=== PATIENT | female | born 1960 | race Caucasian/White ===

== ENCOUNTER → 2021-02-22 | Outpatient (CLI) | payer BC, OTHER ==
--- NOTE | 2021-02-22 13:47 | DIREP ---
PROCEDURE:CT HEAD OR BRAIN W/O CONTRAST COMPARISON:None. INDICATIONS:LT SIDED PATEL, HTN, HX FALL TECHNIQUE:CT images were created without intravenous contrast. FINDINGS: VENTRICLES:The ventricles are normal in size and configuration. CEREBRUM:Small foci of diminished attenuation in the supratentorial white matter consistent with mild leukoaraiosis. CEREBELLUM:Negative. BRAINSTEM:Negative. BASAL CISTERNS:Negative. HEMORRHAGE:No MASS LESION:No ACUTE INFARCT:No SKULL:Normal. SINUSES:Normal. OTHER:None. CONCLUSION:Mild white matter hypodensity. Otherwise, negative head CT. Dictated by: Gurjit Shah M.D. on 02/22/2021 at 01:45 PM
== END | disposition home or self-care (01) ==
LOC: RAD 12:59
PROVIDERS: ATTEND Specialist
DX: R51.9 Headache, unspecified (principal); I10 Essential (primary) hypertension; Z91.81 History of falling
CPT/HCPCS: 70450

== ENCOUNTER → 2021-05-25 | Outpatient (CLI) | payer BC | END | disposition home or self-care (01) | LOC: RAD 15:11 | PROVIDERS: ATTEND Specialist | DX: Z12.31 Encounter for screening mammogram for malignant neoplasm of breast (principal); N64.89 Other specified disorders of breast | CPT/HCPCS: 77067 ==

== ENCOUNTER → 2021-07-01 | Outpatient (CLI) | payer BC ==
[2021-07-01 09:04] LABS: BASOPHIL # 0.1 10^3/uL (0.0-0.1); BASOPHIL % 0.7 % (0.0-0.2); EOSINOPHIL # 0.2 10^3/uL (0.0-0.2); EOSINOPHIL % 2.6 % (0.0-5.0); LYMPHOCYTES # 2.33 10^3/uL1 (1.0-4.8); LYMPHOCYTES % 32.5 % (24.0-44.0); MEAN CORP HGB 28.8 pg (26-34); MONOCYTES # 0.4 10^3/uL (0.3-0.8); MONOCYTES % 6.1 % (5.0-12.0); NEUTROPHIL # 4.1 10^3/uL (1.8-7.7); NEUTROPHILS % 57.1 % (41.0-85.0); PLATELET COUNT 272 10^3/uL (150-400); RED CELL DISTRIBUTION WIDTH 12.6 % (11.5-14.5)
[2021-07-01 09:07] LABS: ABG PCO2 31.1 mmHg (35.0-45.0); BE(B) -4.1 mmol/L (-2.0-2.0); HCO3act 19.3 mmol/L (22.0-26.0); pO2 81.7 mmHg (80.0-100.0)
--- NOTE | 2021-07-01 09:25 | DIREP ---
PROCEDURE:CHEST 2 VIEWS COMPARISON:None. INDICATIONS:COVID POSITIVE, COUGH, DM FINDINGS: LUNGS/PLEURA:No focal consolidation, pleural effusion, or pneumothorax. VASCULATURE:Normal. Unremarkable pulmonary vasculature. CARDIAC:Normal. No cardiac silhouette abnormality or cardiomegaly. MEDIASTINUM:Normal. No visible mass or adenopathy. BONES:Degenerative change without evidence of acute osseus abnormality. OTHER:Negative. CONCLUSION: 1. No acute cardiopulmonary process. Dictated by: Obdulio Robledo MD on 07/01/2021 at 09:23 AM
[2021-07-01 09:34] LABS: ALANINE AMINOTRANSFERASE(ML) 94 U/L (12-78); ALKALINE PHOSPHATASE 204 U/L (50-136); ASPARTATE AMINO TRANSFERASE 46 U/L (0-35); CARBON DIOXIDE 22.9 mmol/L (20.0-32); GLUCOSE 149 mg/dL (70-110)
== END | disposition home or self-care (01) ==
LOC: RAD 08:25
PROVIDERS: ATTEND Specialist
DX: U07.1 COVID-19 (principal); R05 Cough; E11.9 Type 2 diabetes mellitus without complications
CPT/HCPCS: 36415; 36600; 71046; 80053; 82728; 82803; 83036; 83615; 84484; 85025; 85379; 86140

== ENCOUNTER → 2021-07-14 | Outpatient (CLI) | payer BC ==
--- NOTE | 2021-07-14 15:37 | DIREP ---
PROCEDURE:CT CHEST W/O COMPARISON:None. INDICATIONS:ABN LFT'S, COVID ILLNESS, COVID POSITIVE TECHNIQUE:Helical sections through the chest were performed from the lung apices through the diaphragms without IV contrast. Sagittal and coronal reconstructions are obtained from source images. FINDINGS: LUNGS:Mild scarring in lung apices. Faint ground-glass opacity left upper lobe near the hilum. Mild atelectasis in the lingula. Faint ground-glass opacity medial right lung base may be atelectasis or pneumonitis. PLEURA:Normal. No mass or effusion. CARDIAC:Heart size within normal limits. Coronary artery calcifications noted. MEDIASTINUM:Status post right thyroidectomy. No mass or adenopathy. MARIAM:Normal. No mass or adenopathy. AORTA:Normal. No aneurysm. CHEST WALL:Normal. No mass or axillary adenopathy. LIMITED ABDOMEN:Normal. Limited images of the upper abdomen are unremarkable. BONES:Normal. No bony lesion or fracture. OTHER:Negative. CONCLUSION:Faint opacities in both lungs may reflect pneumonitis versus atelectasis. Dictated by: Olivier Matute M.D. on 07/14/2021 at 03:33 PM
== END | disposition home or self-care (01) ==
LOC: RAD 14:22
PROVIDERS: ATTEND Specialist
DX: U07.1 COVID-19 (principal); J98.4 Other disorders of lung; R94.5 Abnormal results of liver function studies
CPT/HCPCS: 71250